=== PATIENT | female | born 1960 | race Caucasian/White ===

== ENCOUNTER 2018-02-16 07:10 | Emergency (ER) | payer BC ==
[~2018-02-16] VITALS: Ht 154.9 cm; Wt 61.2 kg
[2018-02-16 09:08] LABS: Influenza A Negative (NEGATIVE); Influenza B Negative (NEGATIVE)
== END 2018-02-16 10:03 | disposition home or self-care (01) ==
LOC: ER 07:10
PROVIDERS: Emergency Medicine
DX: B34.9 Viral infection, unspecified (principal)
CPT/HCPCS: 71046; 87804; 99283